=== PATIENT | female | born 1970 ===

== ENCOUNTER 2016-12-09 14:31 | Emergency (ER) | payer OTHER ==
[2016-12-09 14:55] VITALS: PULSE 83
--- NOTE | 2016-12-09 17:37 | C.PDOC ---
History Of Present Illness 46 year old patient presents to the ED complaining of left side breast pain for the past 2 days associated with fever and warmth. Patient notes she had some mild pain in October 2016 at which time she had a mammogram and ultrasound done and was diagnosed with cysts to that area. Patient denies any fever or nipple discharge. (-) Time Seen by Provider: 12/09/16 15:17 Chief Complaint (Nursing): Breast Problem History Per: Patient, Director Music History/Exam Limitations: language barrier Onset/Duration Of Symptoms: Days (2) Current Symptoms Are (Timing): Still Present Severity: Mild Pain Scale Rating Of: 3 Reports Recently: Treated By A Physician Recent travel outside of the [place]: No Past Medical History Reviewed: Historical Data, Nursing Documentation, Vital Signs Vital Signs: Last Vital Signs Temp 98.0 F 12/09/16 17:59 Pulse 83 12/09/16 17:59 Resp 16 12/09/16 17:59 BP 121/70 12/09/16 17:59 Pulse Ox 97 12/09/16 19:48 Family History: States: Unknown Family Hx - Social History Hx Tobacco Use: No Hx Alcohol Use: No Hx Substance Use: No - Immunization History Hx Tetanus Toxoid Vaccination: No Hx Influenza Vaccination: No Hx Pneumococcal Vaccination: No Review Of Systems Except As Marked, All Systems Reviewed And Found Negative. Constitutional: Negative for: Fever Musculoskeletal: Positive for: Other (left breast pain; (-)nipple discharge) Physical Exam - Physical Exam Appears: Non-toxic, No Acute Distress Skin: Warm, Dry Head: Atraumatic, Normacephalic Eye(s): bilateral: Normal Inspection, EOMI Nose: Normal Oral Mucosa: Moist Neck: Normal ROM, Supple Chest: Symmetrical, Other (3cm by 6 cm erythema with mild warmth and tenderness at 3 oclock with mobile area of induration in the left breast) Cardiovascular: Rhythm Regular Respiratory: Normal Breath Sounds, No Accessory Muscle Use Back: Normal Inspection Extremity: Normal ROM Neurological/Psych: Oriented x3 Gait: Steady ED Course And Treatment O2 Sat by Pulse Oximetry: 97 (RA) Pulse Ox Interpretation: Normal - CT Scan/US left breast US Other Rad Studies (CT/US): Read By Radiologist (Betty Martinez MD), Radiology Report Reviewed CT/US Interpretation: EXAM: US Left Breast Complete. CLINICAL HISTORY: 46 years old, female; Pain; Breast pain; Left. TECHNIQUE: Static sonographic images of the left breast with image documentation utilizing a linear transducer. Imaging was obtained in all four quadrants, retroareolar region, and the axillae. EXAM DATE/TIME: 12/09/2016 3:34 PM. COMPARISON: No relevant prior studies available. FINDINGS: Solid nodules: None. Cystic masses: Anechoic cystic lesion with posterior acoustic enhancement in the left breast at 3:00. 5 cm from the nipple measuring 2.5 x 1.6 x 2.1 cm. There is a small irregular bordered cystic lesion. with mild posterior acoustic enhancement at 3 :00, 3 cm from the nipple measuring 1 centimeter x 8 x. 7 mm. At 11:00, 3 cm from the nipple there are 2 adjacent ovoid cystic lesions with posterior acoustic. enhancement measuring 10 x 9 x 10 mm and 16 x 8 x 18 mm. Below the nipple there is a tiny cyst. measuring 6 x 5 x 6 mm. Architectural distortion : None. Acoustical shadowing: None. Skin thickening: None. Axillary adenopathy: There is a centrally echogenic nodule in the axillary tail measuring 12 x 8 x 12. mm, likely representing a lymph node. IMPRESSION: Multiple small cystic lesions in the breasts as described. BI-RADS 2 likely benign. Progress Note: Plan: -Keflex. -Left breast US. -Reassess and disposition. Area of erythema was circled. Patient is instructed to return if the erythema spreads. Patient is instructed to follow up with breast surgeon in 1-2 days. Case discussed with Dr. Francois who evaluated US and agrees with the plan and course of treatment. Disposition - Disposition Disposition: HOME/ ROUTINE Disposition Time: 17:37 Condition: STABLE Additional Instructions: Follow up with breast surgeon for re-evaluation in 1-2 days. Return to ER if symptoms persist or worsen. 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 - Scribe Statement The provider has reviewed the documentation as recorded by the Scribe Deedee Jenkins All medical record entries made by the Scribe were at my direction and personally dictated by me. I have reviewed the chart and agree that the record accurately reflects my personal performance of the history, physical exam, medical decision making, and the department course for this patient. I have also personally directed, reviewed, and agree with the discharge instructions and disposition.
[2016-12-09 18:00] VITALS: BP 121/70; RESP 16; TEMP 98
[2016-12-09 19:01] VITALS: O2SAT 97
--- NOTE | 2016-12-10 13:18 | US ---
HISTORY: TECHNIQUE: Targeted high-resolution ultrasound of the left breast was performed with real-time linear scanner. FINDINGS: LEFT BREAST: There is heterogeneous background echotexture. At 3 o'clock position 5 cm from the nipple, there is a 2.5 x 1.6 x 2.1 cm simple cyst. At 3 o'clock position 3 cm from the nipple, there is a 1.0 x 0.8 x 0.7 cm simple cyst. At 11 o'clock position 3 cm from the nipple, there is a 1.0 x 0.9 x 1.0 cm simple cyst and a 1.5 x 0.9 x 1.8 cm simple cyst. There is a 6 x 5 x 6 mm simple cyst in the retroareolar region. There is no suspicious solid mass or fibroadenoma. No axillary lymphadenopathy identified. IMPRESSION: Multiple simple cysts as described above, the largest at 3 o'clock position 5 cm from the nipple measures 2.5 cm. No specific sonographic evidence for breast malignancy. BIRADS: BIRADS 2 Benign finding Recommendation: Continue annual screening mammography, as per ACR guidelines.
== END 2016-12-09 17:59 | disposition home or self-care (01) ==
LOC: C.ER 14:31
DX: N61.0 Mastitis without abscess (principal); N60.02 Solitary cyst of left breast